=== PATIENT | female | born 2000 | race Caucasian/White ===

== ENCOUNTER 2023-11-01 21:22 | Inpatient (IN) ==
[2023-11-01] MEDS ORDERED: OXYTOCIN 30 UNITS/NSS 30 UNITS/500 ML BAG IV PRN (22:01)
[2023-11-01] MEDS ORDERED: LIDOCAINE 1% LOCAL 20 ML VIAL INFIL PRN (22:01)
[2023-11-01 22:52] LABS: Basophils # (auto) 0.03 K/uL (0.00-0.20); Basophils % (auto) 0.2 %; Eosinophils # (auto) 0.23 K/uL (0.00-0.50); Eosinophils % (auto) 1.7 %; Hemoglobin 11.7 g/dl (12.0-16.0); Immature Granulocytes # (auto) 0.07 K/uL (0.01-0.20); Immature Granulocytes % (auto) 0.5 %; Lymphocytes # (auto) 2.64 K/uL (1.20-3.40); Lymphocytes % (auto) 19.1 %; Mean Corpuscular Hemoglobin 26.7 pg (25.0-34.0); Mean Corpuscular Hgb Conc 32.5 g/dL (32.0-36.0); Mean Corpuscular Volume 82.2 fL (80.0-100.0); Mean Platelet Volume 11.4 fL (9.4-12.4); Monocytes # (auto) 1.15 K/uL (0.11-0.59); Monocytes % (auto) 8.3 %; Neutrophils # (auto) 9.71 K/uL (1.40-6.50); Neutrophils % (auto) 70.2 %; Platelet Count 334 K/uL (130-400); RDW Coefficient of Variation 14.6 % (11.5-14.5); RDW Standard Deviation 43.5 fL (36.4-46.3); Red Blood Count 4.38 M/uL (4.20-5.40); White Blood Count 13.83 K/ul (4.8-10.8)
[2023-11-02] MEDS: LACTATED RINGER'S 1,000 ML IV PRN (02:45)
--- NOTE | 2023-11-02 03:04 | Anesthesiology Consultation ---
Date of Service November 02, 2023 Assessment & Plan (1) Encounter for pre-operative examination: Chart Review Chart Review: Acceptable Risk for Labor Epidural History Height/Weight Height: 5 ft 8 in Weight: 133 kg Allergies Allergy/AdvReac Type Severity Reaction Status Date / Time No Known Allergies Allergy Verified 10/29/23 09:33 Medications Home Medications Medication Instructions Recorded Confirmed Last Taken vits no.124-ferrous fum 1 tab PO DAILY 10/15/23 11/01/23 10/14/23 27 mg iron-folic acid 800 mcg tablet ( Vitamin) Past Medical History Medical History Bipolar disorder Varicella vaccine Past Family History Family History Grandmother Breast cancer Cataract Denies family history of Ovarian cancer Colorectal cancer Past Surgical History Surgical History No pertinent past surgical history Social History Smoking Status: Never smoker Do You Dip or Chew Tobacco: No Hx Alcohol Use: No Hx Substance Use: No substance use type: does not use Physical Exam Vital Signs Last Vital Signs Temp 36.5 C 11/02/23 02:33 Pulse 75 11/02/23 03:03 Resp 18 11/02/23 02:33 BP 135/73 11/02/23 02:33 Pulse Ox 94 11/02/23 03:03 Testing Laboratory Results 11/01/23 22:30 Blood Type A Positive 11/01/23 22:30 Antibody Screen NEGATIVE 11/01/23 22:30
[2023-11-02] MEDS: fentANYL 2 MCG/ML BUPIVacaine 0.125%-NSS 100ML BAG ONE (03:30)
[2023-11-02] MEDS: ePHEDrine sulfate 50 MG/ML AMP ONE (03:36)
[2023-11-02] MEDS ORDERED: BUPIVACAINE 0.25% PF 30 ML VIAL EPI PRN (03:40)
[2023-11-02] MEDS ORDERED: ePHEDrine sulfate 50 MG/ML AMP IV PRN (03:40)
[2023-11-02] MEDS ORDERED: ROPIVACAINE 0.5% PF 5 MG/ML 20 ML VIAL EPI PRN (03:40)
[2023-11-02] MEDS ORDERED: NALOXONE HCL 0.4 MG/1 ML VIAL/CARP IV PRN (03:40)
[2023-11-02] MEDS ORDERED: NALOXONE HCL 1 MG in SODIUM CHLORIDE 0.9% 1,000 ML IV PRN (03:40)
[2023-11-02] MEDS ORDERED: LIDOCAINE 2%/EPINEPHRINE 1:200,000 20 ML PF EPI STA (03:40)
[2023-11-02] MEDS ORDERED: fentaNYL citrate PF 100 MCG/2 ML VIAL EPI PRN (03:40)
[2023-11-02] MEDS ORDERED: SODIUM CHLORIDE 0.9% PF INJ 10 ML VIAL EPI PRN (03:40)
[2023-11-02] MEDS ORDERED: LIDOCAINE 2% MPF LOCAL 5 ML VIAL EPI PRN (03:40)
[2023-11-02] MEDS: LIDOCAINE 2%/EPINEPHRINE 1:200,000 20 ML PF ONE (03:41)
[2023-11-02] MEDS: fentaNYL citrate PF 100 MCG/2 ML VIAL ONE (03:41)
[2023-11-02] MEDS: BUPIVACAINE 0.25% PF 30 ML VIAL ONE (03:41)
[2023-11-02] MEDS: SODIUM CHLORIDE 0.9% PF INJ 10 ML VIAL ONE (06:53)
[2023-11-02] MEDS: BUPIVACAINE 0.25% PF 30 ML VIAL EPI STA (06:54)
[2023-11-02] MEDS: fentaNYL citrate PF 100 MCG/2 ML VIAL EPI STA (06:54)
[2023-11-02] MEDS: SODIUM CHLORIDE 0.9% PF INJ 10 ML VIAL EPI STA (06:55)
[2023-11-02] MEDS: ONDANSETRON INJ 2 MG/ML 2 ML VIAL IV PRN (06:59)
[2023-11-02] MEDS: OXYTOCIN 30 UNITS/NSS 30 UNITS/500 ML BAG IV PRN (07:18)
[2023-11-02] MEDS: fentANYL 2 MCG/ML BUPIVacaine 0.125%-NSS 100ML BAG EPI PRN (12:10)
--- NOTE | 2023-11-02 13:18 | Delivery Summary ---
Vaginal Delivery Summary Date of Service November 02, 2023 Vaginal Delivery Summary Patient admitted by Dr. Rivas and then signed over from Dr. Callejas was at 12:30 PM today at 1:00 she delivered a baby in occiput anterior position. After delivery of the head I was able to release the shoulder from under the symphysis with gentle pressure and then maternal efforts baby was then easy delivery there was some terminal meconium noticed once the baby was delivered cord was clamped and cut both with suction with nares Cord gases obtained cord blood obtained live female vigorous Second-degree tear was noted placenta was removed with gentle traction IV Pitocin started uterine tone excellent second-degree tear repaired with 3-0 Vicryl sponge and instrument counts correct
[2023-11-02 13:47] LABS: Base Excess Cord Arterial Bld -10.5 mEq/L (-9-1.8); CO2 Cord Arterial Blood 69 mmHg (39.1-73.5); HCO3 Cord Arterial Blood 21 mmol/L (19.7-28.5); Oxygen Sat Cord Arterial Blood < 60.0 % (<60); PO2 Cord Arterial Blood < 20 mmHg (4.1-31.7); pH Cord Arterial Blood 7.08 (7.1-7.38)
[2023-11-02 13:48] LABS: Base Excess Cord Venous Blood -10.1 mEq/L (-7.7-1.9); Cord Venous Blood HCO3 19 mmol/L (18.4-26.8); Cord Venous Blood PCO2 57 mmHg (30.4-57.2); Cord Venous Blood PO2 < 20 mmHg (14.1-43.3); Cord Venous Blood pH 7.14 (7.20-7.44); O2 Saturation Cord Venous Bld < 60.0 % (<68)
--- NOTE | 2023-11-02 14:35 | Anesthesia Procedure Note ---
Date of Service November 02, 2023 Anesthesia Post Epidural Note Vital Signs Vital Signs: Temp Pulse Resp BP Pulse Ox 36.6 C 103 H 18 134/73 82 L 11/02/23 13:47 11/02/23 14:32 11/02/23 06:01 11/02/23 14:32 11/02/23 13:02 Notes Mental Status: alert / awake / arousable Nausea / Vomiting: adequately controlled Pain: adequately controlled Airway Patency, RR, SpO2: stable & adequate BP & HR: stable & adequate Hydration State: stable & adequate Neuraxial Anesthesia: was administered and sensory block is resolving Anesthetic Complications: no major complications apparent and Pt Satisfied with anesthetic care Epidural: Removed without complications and With tip intact
[2023-11-02] MEDS ORDERED: HYDROCORTISONE ACETATE 25 MG SUPP PR PRN (15:26)
[2023-11-02] MEDS ORDERED: OXYTOCIN 30 UNITS/NSS 30 UNITS/500 ML BAG IV PRN (15:26)
[2023-11-02] MEDS ORDERED: bisacodyL 10 MG SUPP PR PRN (15:26)
[2023-11-02] MEDS ORDERED: ACETAMINOPHEN 325 MG TAB PO PRN (15:26)
[2023-11-02] MEDS: IBUPROFEN 600 MG TAB PO PRN (16:16)
[2023-11-02] MEDS: DOCUSATE SODIUM 100 MG CAP PO SCH (20:55)
[2023-11-02] MEDS: BENZOCAINE 20% SPRY 85 APPLN/85 GM CAN EXT PRN (21:24)
[2023-11-02] MEDS: DIPHTHER/TETAN/PERTUS Vaccine (Tdap, Adol/Adult) 0.5mL IM ONE (23:32)
[2023-11-03 06:46] LABS: Hematocrit (blood only) 33.3 % (37.0-47.0); Hemoglobin 11.1 g/dl (12.0-16.0); Mean Corpuscular Hemoglobin 27.3 pg (25.0-34.0); Mean Corpuscular Hgb Conc 33.3 g/dL (32.0-36.0); Mean Platelet Volume 11.3 fL (9.4-12.4); Platelet Count 322 K/uL (130-400); RDW Coefficient of Variation 14.9 % (11.5-14.5); RDW Standard Deviation 44.2 fL (36.4-46.3); Red Blood Count 4.06 M/uL (4.20-5.40); White Blood Count 18.52 K/ul (4.8-10.8)
--- NOTE | 2023-11-03 07:02 | Obstetrical Progress Note ---
Date of Service <Bharat Jarrell DO - Last Filed: 11/03/23 07:02> November 03, 2023 Assessment & Plan <Bharat Jarrell DO - Last Filed: 11/03/23 07:02> (1) Encounter for assessment: Plan 23 y/o PPD#1: Eating well, voiding well, ambulating well Vitals reviewed, WNL Pain well controlled with Motrin Routine post care - OOB, ambulation, diet progression as tolerated Will have 6 week follow up with Dr. Cheung <Renea Cheung MD, FACOG - Last Filed: 11/03/23 07:39> (1) Encounter for assessment: Subjective <Bharat Jarrell - Last Filed: 11/03/23 07:02> Ambulation: ambulating normally Voiding: no voiding problems Passing Gas:: Yes Diet Tolerance:: regular diet Lochia:: Moderate Feeding Type:: breast feeding Pain well controlled with Motrin Review of Systems -Denies fever or chills -Denies dyspnea, chest pain, or palpitations -Denies dysuria -Denies headache or changes in vision Physical Exam <Bharat Jarrell - Last Filed: 11/03/23 07:02> General: Alert and oriented. No acute distress Cardiac: Regular rate and rhythm, no murmurs appreciated Respiratory: Lungs clear to auscultation bilaterally, No increased work of breathing Abdominal: Soft, non-tender, non-distended. Bowel sounds present. Uterus: Uterine fundus firm, palpable below umbilicus Extremities: No lower extremity edema, calves non-tender bilaterally Results & Data <Bharat Wesly - Last Filed: 11/03/23 07:02> Vital Signs (Past 12 Hours) Vital Signs Temp Pulse Resp BP Pulse Ox O2 Del Method 11/03/23 03:36 37.1 C 98 H 20 116/73 98 Room Air 11/02/23 23:25 37.2 C 96 H 18 130/81 Room Air 11/02/23 22:57 37.2 C 90 18 127/81 97 Room Air 11/02/23 19:12 37.2 C 94 H 20 125/75 96 Room Air Supervising Physician <Renea Cheung MD, FACOG - Last Filed: 11/03/23 07:39> Co-Signing Physician Notes Resident Physician Supervision Note: I was present with Dr. aJrrell during the history and exam. I discussed the case with the resident and agree with the findings and plan as documented in the note. Any exceptions or clarifications are listed here: [None] Documented By: Renea Cheung MD, FACOG Resident Activity Tracking <Bharat Jarrell DO - Last Filed: 11/03/23 07:02> Resident Involvement: Resident Care Provided Care Provided: OB Delivery
[2023-11-03] MEDS: PRENATAL VITAMIN 1 TAB PO SCH (07:34)
[2023-11-03] MEDS: bisacodyL 5 MG TABEC PO SCH (19:46)
[2023-11-04 08:04] LABS: Hemoglobin 10.2 g/dl (12.0-16.0)
--- NOTE | 2023-11-04 09:08 | Obstetrical Progress Note ---
Date of Service November 04, 2023 Assessment & Plan (1) Encounter for assessment: satisfactory exam plan discharge today follow up in 6 weeks Subjective Ambulation: ambulating normally Voiding: no voiding problems Passing Gas:: Yes Diet Tolerance:: regular diet Lochia:: Small Feeding Type:: breast feeding doing well this morning- minimal cramping Review of Systems All systems reviewed & are unremarkable except as noted in HPI & below Physical Exam Constitutional WD/WN, vitals as above Psychiatric A+Ox3, euthymic affect Genitourinary OB Exam Abdomen: + fundal height Fundus: + firm and + relation to umbilicus (2 below) Results & Data Vital Signs (Past 12 Hours) Vital Signs Temp Pulse Resp BP Pulse Ox O2 Del Method 11/03/23 23:57 99.5 F 11/03/23 23:08 100.0 F H 90 20 124/79 98 Room Air
== END 2023-11-04 13:20 | disposition home or self-care (01) | DRG 807 ==
LOC: OPB 21:22 → 4S1 21:23 → 4E2 11-02 16:11